=== PATIENT | male | born 1990 | race Caucasian/White ===

== ENCOUNTER 2016-10-04 14:36 | Emergency (ER) | payer SELFPAY ==
[2016-10-04 15:57] VITALS: BP 138/86
--- NOTE | 2016-10-04 17:03 | EDM.PDOC ---
ED HPI GENERAL MEDICAL PROBLEM - General Chief Complaint: Upper Extremity Injury/Pain Stated Complaint: LEFT ARM INJURY, FELL OFF SKATEBOARD 10-03-16 Time Seen by Provider: 10/04/16 16:00 Source of Information: Reports: Patient History Limitations: Reports: No Limitations - History of Present Illness INITIAL COMMENTS - FREE TEXT/NARRATIVE: 26 yo male presents 1 day post falling off of skateboard onto left elbow. limited ROM. smoker otherwise generally healthy - Related Data Allergies Allergy/AdvReac Type Severity Reaction Status Date / Time amoxicillin Allergy Cannot Verified 08/27/15 21:48 Remember Penicillins Allergy Cannot Verified 08/27/15 21:48 Remember Home Meds: Home Meds Ibuprofen 600 mg PO Q6H PRN 10/04/16 [History] Past Medical History Musculoskeletal History: Reports: Fracture - Past Surgical History Musculoskeletal Surgical History: Reports: Other (See Below) Social & Family History - Tobacco Use Smoking Status *Q: Current Every Day Smoker Years of Tobacco use: 12 Packs/Tins Daily: 1 Second Hand Smoke Exposure: Yes - Caffeine Use Caffeine Use: Reports: Soda - Alcohol Use Days Per Week of Alcohol Use: 2 Number of Drinks Per Day: 7 Total Drinks Per Week: 14 - Recreational Drug Use Recreational Drug Use: No Review of Systems - Review of Systems Review Of Systems: See Below Constitutional: Denies: Fever Respiratory: Denies: Shortness of Breath Cardiovascular: Denies: Chest Pain Musculoskeletal: Reports: Joint Pain ED EXAM, GENERAL - Physical Exam Exam: See Below Exam Limited By: No Limitations General Appearance: Alert, WD/WN, No Apparent Distress Respiratory/Chest: No Respiratory Distress, Wheezing (scattered) Cardiovascular: Regular Rate, Rhythm Extremities: Joint Swelling, Other (left elbow limited ROM to 45 degree flexation and just past 90 degrees extention, unable to rotate radius laterally , moder edema of elbow joint, crusted abrasion ) Course - Vital Signs Last Recorded V/S: Last Vital Signs Temp 36.5 C 10/04/16 16:14 Pulse 64 10/04/16 16:14 Resp 16 10/04/16 16:14 BP 138/86 10/04/16 16:14 Pulse Ox 99 10/04/16 16:14 - Orders/Labs/Meds Orders: Active Orders 24 hr Category Date Time Status Elbow Min 3V Lt [CR] Stat Exams 10/04/16 17:03 Taken DME for Discharge [COMM] Stat Oth 10/04/16 19:18 Ordered - Re-Assessments/Exams Free Text/Narrative Re-Assessment/Exam: 10/04/16 19:43 x-ray abnormalities noted, orthopedic consulted and during wait for orthopedic return call pt decided he did not want to wait any longer. Pt was educated on risk that he was taking by leaving AMA and that he would be incharge of his own follow-up. Pt was placed in a sling and given instructions for orthopedic clinic Departure - Departure Time of Disposition: 19:15 Disposition: Against Medical Advice 07 Condition: Fair Clinical Impression: Humeral fracture Qualifiers: Encounter type: initial encounter Humerus Location: distal Fracture type: closed Fracture morphology: unspecified fracture morphology Elbow dislocation Qualifiers: Encounter type: initial encounter Laterality: left Qualified Code(s): S53.105A - Unspecified dislocation of left ulnohumeral joint, initial encounter - Discharge Information Instructions: Humerus Fracture Treated With Immobilization, [id number], Elbow Dislocation, [id number] Referrals: PCP,None [Primary Care Provider] - Forms: ED Department Discharge Additional Instructions: call orthopedics Thursday for appt to be seen on thursday. wear sling return to emergency room if hand becomes numb or white/purple ice as much as possible ibuprofen 400-600 mg every 6 hours for pain - My Orders Last 24 Hours: My Active Orders 10/04/16 17:03 Elbow Min 3V Lt [CR] Stat 10/04/16 19:18 DME for Discharge [COMM] Stat - Assessment/Plan Last 24 Hours: My Active Orders 10/04/16 17:03 Elbow Min 3V Lt [CR] Stat 10/04/16 19:18 DME for Discharge [COMM] Stat
--- NOTE | 2016-10-06 09:28 | CR ---
Elbow Min 3V Lt HISTORY: Trauma COMPARISON: None FINDINGS: There is a joint effusion. Possible small compaction injury to the radial neck. Distal hum erus demonstrates no cortically displaced fracture. Impression: Large joint effusion possible injury to the radial neck on the first image. Would suggest follow-up imaging in approximately 2 weeks to reevaluate.
== END 2016-10-04 19:25 | disposition left against medical advice (07) ==
LOC: JP.ED 14:36
DX: S42.402A Unspecified fracture of lower end of left humerus, initial encounter for closed fracture (principal); S53.105A Unspecified dislocation of left ulnohumeral joint, initial encounter; Z88.1 Allergy status to other antibiotic agents; Z88.0 Allergy status to penicillin; F17.210 Nicotine dependence, cigarettes, uncomplicated; V00.131A Fall from skateboard, initial encounter
CPT/HCPCS: 73080-26-LT; 73080-LT; 99283; 99284

== ENCOUNTER 2018-10-02 23:55 | Emergency (ER) | payer OTHER ==
[2018-10-03 00:22] VITALS: PULSE 73
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
== END 2018-10-03 01:06 | disposition home or self-care (01) ==
LOC: JP.ED 23:55
DX: S01.01XA Laceration without foreign body of scalp, initial encounter (principal); Z88.1 Allergy status to other antibiotic agents; Z88.0 Allergy status to penicillin; Y04.0XXA Assault by unarmed brawl or fight, initial encounter
CPT/HCPCS: 12002; 99282